=== PATIENT | female | born 1965 | race Caucasian/White ===

== ENCOUNTER 2022-10-13 09:24 | Day surgery (SDC) | payer SELFPAY ==
[2022-10-13 09:53] VITALS: BMI 28.6
[2022-10-13] MEDS ORDERED: ONDANSETRON 4 MG/2 ML VIAL IVPUSH ONE (10:10)
[2022-10-13] MEDS ORDERED: KETOROLAC TROMETHAMINE 15 MG/ML VIAL IVPUSH ONE (10:10)
[2022-10-13] MEDS ORDERED: SODIUM CHLORIDE 0.9% 500 ML INFUS.BAG IV ONE (10:11)
[2022-10-13] MEDS ORDERED: ONDANSETRON 4 MG/2 ML VIAL ONE ×2 (11:20→15:01)
[2022-10-13] MEDS ORDERED: KETOROLAC TROMETHAMINE 15 MG/ML VIAL ONE (11:20)
[2022-10-13 11:40] LABS: HEMATOCRIT 39.8 % (32.4-45.2); HEMOGLOBIN 13.8 G/dL (10.7-15.3); MCH 30.7 pg (25.7-33.7); MCHC 34.6 g/dl (32.0-36.0); MEAN CELL VOLUME 88.6 fl (80-96); MEAN PLT VOLUME 9.3 fl (7.5-11.1); PLATELET COUNT 261.5 10^3/uL (134-434); RBC 4.49 10^6/uL (3.60-5.2); RDW 13.2 % (11.6-15.6); WHITE BLOOD COUNT 15.5 10^3/uL (4.0-10.8)
[2022-10-13 11:45] LABS: BILIRUBIN,TOTAL 0.8 mg/dl (0.2-1); CALCIUM 9.1 mg/dl (8.5-10); CREATININE 0.7 mg/dl (0.55-1.3); TOT PROT 7.2 g/dl (6.4-8.2)
[2022-10-13 12:19] LABS: PLATELET ESTIMATE ADEQUATE
[2022-10-13] MEDS ORDERED: DEXTROSE 5%-NORMAL SALINE 1,000 ML IV SCH ×2 (13:00→16:18)
[2022-10-13] MEDS ORDERED: ALPRAZolam 1 MG TABLET PO PRN ×2 (14:04→16:18)
[2022-10-13 14:05] LABS: INR 1.06 (0.83-1.09); PROTHROMBIN TIME (PATIENT) 12.2 SEC (9.7-13.0)
[2022-10-13 14:08] LABS: ACTIVATED PTT 28.6 SECONDS (25.2-36.5)
[2022-10-13] MEDS ORDERED: ALPRAZolam 0.25 MG TABLET ONE (14:19)
[2022-10-13] MEDS ORDERED: FENTANYL CITRATE/PF 50 MCG/ML VIAL ONE (15:00)
[2022-10-13] MEDS ORDERED: MIDAZOLAM HCL 2 MG/2 ML SINGLE DOSE VIAL ONE (15:01)
[2022-10-13] MEDS ORDERED: DEXAMETHASONE SOD PHOSPHATE 4 MG/1 ML VIAL ONE (15:01)
[2022-10-13] MEDS ORDERED: SUCCINYLCHOLINE CHLORIDE 200 MG/10 ML SYRINGE ONE (15:13)
[2022-10-13] MEDS ORDERED: PROPOFOL 20 ML ONE (15:13)
[2022-10-13] MEDS ORDERED: ROCURONIUM BROMIDE 50 MG/5 ML SYRINGE ONE (15:14)
[2022-10-13] MEDS ORDERED: ceFAZolin SODIUM 1 GM VIAL ONE (15:18)
[2022-10-13] MEDS ORDERED: BUPIVACAINE HCL/EPINEPHRINE/PF 30 ML VIAL IJ ONE (15:57)
[2022-10-13] MEDS ORDERED: BUPIVACAINE HCL/PF 2.5 MG/ML - 30 ML VIAL IJ ONE (15:57)
[2022-10-13] MEDS ORDERED: NEOSTIGMINE METHYLSULFATE 0.5 MG/1 ML - 10 ML MDV ONE (16:02)
[2022-10-13] MEDS ORDERED: DOCUSATE SODIUM 100 MG CAPSULE (FP) PO PRN (16:11)
[2022-10-13] MEDS ORDERED: ACETAMINOPHEN 1000 MG/100 ML BAG IVPB ONE (16:18)
[2022-10-13] MEDS ORDERED: IBUPROFEN 800 MG/8 ML IJ IVPB PRN (16:18)
[2022-10-13] MEDS ORDERED: LACTATED RINGERS SOLUTION 1,000 ML IV SCH (16:30)
[2022-10-13] MEDS ORDERED: ACETAMINOPHEN INJECTION 100 ML IVPB ONE (16:30)
[2022-10-13 17:01] VITALS: RESP 18
[2022-10-13] MEDS: oxyCODONE HCL 5 MG TABLET PO PRN (18:12)
[2022-10-14 06:28] VITALS: TEMP 98.2
[2022-10-14 09:28] VITALS: BP 98/63; PULSE 74
[2022-10-14 09:56] LABS: HEMATOCRIT 33.2 % (32.4-45.2); HEMOGLOBIN 11.7 G/dL (10.7-15.3); MCH 31.3 pg (25.7-33.7); MCHC 35.2 g/dl (32.0-36.0); MEAN CELL VOLUME 89.1 fl (80-96); PLATELET COUNT 219.2 10^3/uL (134-434); RBC 3.73 10^6/uL (3.60-5.2); RDW 13.1 % (11.6-15.6); WHITE BLOOD COUNT 10.4 10^3/uL (4.0-10.8)
[2022-10-14 10:35] LABS: PLATELET ESTIMATE ADEQUATE
[2022-10-14] MEDS: oxyCODONE HCL 5 MG TABLET PO PRN (10:50)
== END 2022-10-14 12:19 | disposition home or self-care (01) ==
LOC: FER 09:24 → FASUSAT 13:42 → FM/S 17:04 → FASUSAT 10-14 12:19
PROVIDERS: ATTEND Surgery
PROC: 0DTJ4ZZ Resection of Appendix, Percutaneous Endoscopic Approach (ICD-10-PCS; principal; 2022-10-13 15:35)
DX: K35.80 Unspecified acute appendicitis (principal)
CPT/HCPCS: 0241U-QW; 36415; 74177-TC; 76705-TC; 80053; 83605; 83690; 84484; 85025; 85027; 85610; 85730; 86850; 86900; 86901; 88304-TC; 94760; 99285-25; Q9967